=== PATIENT | female | born 1990 | race African-American/Black ===

== ENCOUNTER 2020-08-17 20:21 | Emergency (ER) | payer SELFPAY ==
[2020-08-17 21:41] VITALS: BP 111/68; PULSE 62; TEMP 97.9; BMI 26.5
== END 2020-08-17 23:54 | disposition home or self-care (01) ==
LOC: JER 20:21
DX: Z03.818 Encounter for observation for suspected exposure to other biological agents ruled out (principal)
CPT/HCPCS: 99283-25; C9803; U0003